=== PATIENT | female | born 1995 | race Caucasian/White ===

== ENCOUNTER 2020-10-15 14:10 | Emergency (ER) | payer BC ==
[~2020-10-15] VITALS: Ht 160 cm; Wt 59.8 kg
--- NOTE | 2020-10-15 15:45 | PHYS DOC ---
Past History Past Medical History: Asthma Past Surgical History: No Surgical History Alcohol Use: None Adult General Chief Complaint Chief Complaint: CONSTIPATION HPI HPI Patient is a 25-year-old female presents emergency department today complaining of constipation. Patient states she has battled constipation her entire life. Patient states she is currently 6 weeks , has not had a bowel movement since last Thursday. Patient states she has tried to get a hold of her MAPPING TECHNICIAN Dr. Haresh Funez at [facility] and has not had a return phone call from the office. Patient states she tried a glycerin suppository this morning without success. Patient states this is her first , her last menstrual cycle was September 012020, her EDC is June 062020. Patient denies any vaginal discharge, however states she is currently being treated with vaginal application clindamycin for BV started by her MAPPING TECHNICIAN. Patient denies any vaginal bleeding. Patient complains of generalized abdominal discomfort which is consistent with her constipation symptoms. Patient denies any nausea vomiting or diarrhea. Patient denies any other physical complaints or physical concerns. Patient reports drinking 60 ounces of fluid daily since becoming . Review of Systems Review of Systems 14 body systems of review of systems have been reviewed. See HPI for pertinent positives and negative responses, otherwise all other systems are negative, nonpertinent or noncontributory. Current Medications Current Medications vitamin Allergies Allergies Allergies Coded Allergies Type Severity Reaction Last Updated Verified cephalexin Allergy Unknown 10/15/20 Yes Physical Exam Physical Exam Constitutional: Well developed, well nourished, no acute distress, non-toxic appearance. 25-year-old female in no apparent distress. HENT: Normocephalic, atraumatic, bilateral external ears normal, oropharynx moist, no oral exudates, nose normal. Eyes: Conjunctive appear normal, no obvious discharge from eyes, patient tracking normally. Neck: Normal range of motion. Cardiovascular: No cyanosis appreciated, distal cap refill less than 2 seconds. Lungs & Thorax: Patient in no respiratory distress. Abdomen: Bowel sounds normal auscultation all 4 quadrants, soft, no tenderness, no masses, no pulsatile masses. Skin: Warm, dry, no erythema, no rash. Back: No tenderness, no CVA tenderness. Extremities: No tenderness, no cyanosis, no clubbing, ROM intact, no edema. Neurologic: Alert and oriented X 3, normal motor function, normal sensory function, no focal deficits noted. Psychologic: Affect normal, judgement normal, mood normal. Current Patient Data Vital Signs Vital Signs Date Time Temp Pulse Resp B/P (MAP) Pulse Ox O2 Delivery O2 Flow Rate FiO2 10/15/20 14:29 97.3 82 16 118/76 (90) 100 Room Air EKG EKG [] Radiology/Procedures Radiology/Procedures [] Heart Score C/O Chest Pain: No Risk Factors: Risk Factors: DM, Current or recent (<one month) smoker, HTN, HLP, family history of CAD, obesity. Risk Scores: Risk Factors: DM, Current or recent (<one month) smoker, HTN, HLP, family history of CAD, obesity. Course & Med Decision Making Course & Med Decision Making Pertinent Labs and Imaging studies reviewed. (See chart for details) 25-year-old female 1 para 0 at approximately 6 weeks gestation, vital signs reviewed, presents emergency department concerning constipation. Physical examination is unremarkable. Patient has no concerns about her , states her is going as she has expected. Discussed with patient starting MiraLAX at home twice a day, may increase to 4 times a day as needed. Patient states she has taken MiraLAX at home in the past with success but has not tried using MiraLAX that she has been . Discussed with patient to continue taking her clindamycin vaginally as directed by her MAPPING TECHNICIAN. Discussed with patient to continue trying to get a hold of her MAPPING TECHNICIAN office today to let them know of her constipation symptoms and her starting on MiraLAX at home today. Discussed with patient increasing fluid intake. Patient gave verbal understanding of discharge home instructions, MiraLAX use, calling MAPPING TECHNICIAN today, follow-up with MAPPING TECHNICIAN soon, patient had no further questions or concerns, return to ER precautions and concerns, was discharged home without incident. Dragon Disclaimer Dragon Disclaimer This electronic medical record was generated, in whole or in part, using a voice recognition dictation system. Departure Departure: Impression: Primary Impression: Constipation Disposition: 01 DC HOME SELF CARE/HOMELESS Condition: GOOD Referrals: GAYLE PEGUERO (PCP) Patient Instructions: Constipation, Adult Additional Instructions: Please get a hold of your MAPPING TECHNICIAN today to discuss with them you starting on MiraLAX twice a day and increase it up to 4 times a day if needed. Please start MiraLAX today as we discussed. Keep your MAPPING TECHNICIAN appointments as discussed. Please return to the emergency department for worsening symptoms or other concerns. EMERGENCY DEPARTMENT GENERAL DISCHARGE INSTRUCTIONS Thank you for coming to [facility] (ED) today and trusting us with you care. We trust that you had a positivie experience in our Emergency Department. If you wish to speak to the department management, you may call the director at [phone]. YOUR FOLLOW UP INSTRUCTIONS ARE FOLLOWS: 1. Do you have a private Doctor? If you do not have a private doctor, please ask for a resource list of physicians or clinics that may be able to assist you with follow up care. 2. The Emergency Physician has interpreted your x-rays. The X-Ray specialist will also review them. If there is a change in the findings, you will be notified in 48 hours when at all possible. 3. A lab test or culture has been done, your results will be reviewed and you will be notified if you need a change in treatment. ADDITIONAL INSTRUCTIONS AND INFORMATION: 1. Your care today has been supervised by a physician who is specially trained in emergency care. Many problems require more than one evaluation for a complete diagnosis and treatment. We recommend that you schedule your follow up appointment as recommended to ensure complete treatment of you illness or injury. If you are unable to obtain follow up care and continue to have a problem, or if your condition worsens, we recommend that you return to the ED. 2. We are not able to safely determine your condition over the phone nor are we able to give sound medical advice over the phone. For these safety reasons, if you call for medical advice we will ask you to come to the ED for further evaluation. 3. If you have any questions regarding these discharge instructions please call the ED at [phone]. SAFETY INFORMATION: In the interest of safety, wellness, and injury prevention; we encourage you to wear your sealbelt, if you smoke; quite smoking, and we encourage family to use a protective helmet for bicycling and other sporting events that present an increased risk for head injury. IF YOUR SYMPTOMS WORSEN OR NEW SYMPTOMS DEVELOP, OR YOU HAVE CONCERNS ABOUT YOUR CONDITION; OR IF YOUR CONDITION WORSENS WHILE YOU ARE WAITING FOR YOUR FOLLOW UP APPOINTMEN T; EITHER CONTACT YOUR PRIMARY CARE DOCTOR, THE PHYSICIAN WHOSE NAME AND NUMBER YOU WERE GIVEN, OR RETURN TO THE ED IMMEDIATELY. Problem Qualifiers Primary Impression: Constipation Constipation type: unspecified constipation type Qualified Codes: K59.00 - Constipation, unspecified TILA RACHEL [employer]ING [employer] Oct 15, 2020 15:45
[2020-10-15 15:50] VITALS: BP 98/67
== END 2020-10-15 15:50 | disposition home or self-care (01) ==
LOC: ER 14:10
DX: O26.891 Other specified pregnancy related conditions, first trimester (principal); K59.00 Constipation, unspecified; O99.511 Diseases of the respiratory system complicating pregnancy, first trimester; Z3A.01 Less than 8 weeks gestation of pregnancy; J45.909 Unspecified asthma, uncomplicated; Z88.1 Allergy status to other antibiotic agents
CPT/HCPCS: 99281